=== PATIENT | male | born 1995 | race African-American/Black ===

== ENCOUNTER 2016-08-01 07:18 | Emergency (ER) | payer BC ==
[2016-08-01 07:38] VITALS: BP 134/71
[2016-08-01] MEDS ORDERED: cefTRIAXone VIAL(*) 1,000 MG VIAL IM ONE (07:59)
[2016-08-01] MEDS ORDERED: Acetaminophen ADULT LIQ* 650 MG/20.3 ML UDC PO ONE (08:00)
[2016-08-01] MEDS ORDERED: methylPREDNISolone 125 MG* 2 ML VIAL IM ONE (08:00)
[2016-08-01] MEDS ORDERED: Lidocaine 1% MPF* 2 ML VIAL ONE (08:06)
--- NOTE | 2016-08-01 11:35 | UC ---
Jose Srinivasan Adam, scribed for Nolvia Russo MD on 08/01/16 at 0736 . Throat Pain/Nasal Amado HPI - HPI Summary HPI Summary: Pt is a 21 year old male presenting with a sore throat and swollen glands. He states that he has not been feeling well for "a couple of days." He also reports a fever and a mild cough. He denies rash and rhinorrhea. He has not taken any Tylenol or ibuprofen. 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 C/o hurts to swallow, melinda R neck. C/o pain under R jaw. No rash. Mild nonprod cough. Mild headache. No GI issues Able to drink water, but hurts to swallow. - History of Current Complaint Stated Complaint: SORE THROAT NECK PAIN Hx Obtained From: Patient Onset/Duration: Gradual Onset, Lasting Days, Still Present Severity: Moderate Cough: Nonproductive Associated Signs & Symptoms: Positive: Fever. Negative: Nasal Discharge, Rash - Allergies/Home Medications Allergies/Adverse Reactions: Allergies Allergy/AdvReac Type Severity Reaction Status Date / Time No Known Allergies Allergy Verified 08/01/16 07:38 PMH/Surg Hx/FS Hx/Imm Hx Previously Healthy: Yes Endocrine History Of: Denies: Diabetes, Thyroid Disease Cardiovascular History Of: Denies: Cardiac Disorders, Hypertension Respiratory History Of: Denies: COPD, Asthma GI/ History Of: Denies: Ulcer - Surgical History Surgical History: None - Family History Known Family History: Negative: Hypertension, Diabetes - Social History Occupation: Student Lives: With Family - Mother Alcohol Use: Occasionally Substance Use Type: None Smoking Status (MU): Never Smoked Tobacco Review of Systems Constitutional: Fever Skin: Negative Eyes: Negative ENT: Sore Throat - see hpi Respiratory: Cough - see hpi Cardiovascular: Negative Gastrointestinal: Negative Genitourinary: Negative Motor: Negative Neurovascular: Negative Musculoskeletal: Negative Neurological: Negative Psychological: Negative All Other Systems Reviewed And Are Negative: Yes Physical Exam Triage Information Reviewed: Yes Vital Signs: Initial Vital Signs Temp 101.8 F 08/01/16 07:32 Pulse 115 08/01/16 07:32 Resp 16 08/01/16 07:32 BP 134/71 08/01/16 07:32 Pulse Ox 100 08/01/16 07:32 - Additional Comments Appearance: Well-Nourished * Eye Exam: Normal * ENT Exam: Tonsils swollen, right slightly more than left. Uvula is midline. Tongue not elevated. Speach clear. Lips a lttle dry. Cerumen impaction in both ears (patient declines to have them flushed). * Neck exam: Right submandibular lymphadenopathy with tenderness. C/o pain turning neck to the left 2/2 pain in R gland area. No zulema meningismus perse. * Respiratory Exam: Normal, lungs clear, no dyspnea, no tachypnea, normal respiratory rate * Cardiovascular Exam: Normal, no murmur * Cardiovascular: Heart rate regular, good general skin color, good capillary refill. No rash visible or reported. * Abdominal Exam: Normal * Abdomen Description: Nontender, No Organomegaly, Soft * Bowel Sounds: Present * Musculoskeletal Exam: Normal * Musculoskeletal: Strength Intact * Neurological Exam: Normal: nonfocal, grossly intact * Psychological Exam: Normal: conversing easily and appropriately * Skin Exam: Normal: no visible or reported rash Diagnostics - Laboratory Diagnostic Studies Completed/Ordered: Group A Strep Rapid - Negative Throat Pain/Nasal Course/Dx - Course Course Of Treatment: RST negative. Full culture sent. Tonsils red and swollen , no purulence. Slightly assymetric size of swelling, R>L. No purulence. No stridor. No trismus. Considered below diff dx's. C/w tonsillitis (non-strep) . Does have a hx of mononucleosis in the past (noted in lab results in [facility] ). Consider possible early peritonsillar abscess. D/w pt and mom. Rx - augmentin. Rocephin IM here, Solumedrol IM here, Acetaminophen po here. Will take ibuprofen later today at home. Called ENT office (Dr. Chiang), the office will kindly schedule Mr. Child for tomorrow recheck at 11:15. D/w pt and mom. They will f/u with pcp, per routine. Advised to seek more immediate attention for any worse or new problems. Questions answered as posed to the best of my ability. - Differential Dx/Diagnosis Provider Diagnoses: Tonsillitis, possible early peritonsillar abscess R Discharge - Discharge Plan Condition: Stable Disposition: HOME Patient Education Materials: Peritonsillar Abscess (ED), Tonsillitis (ED) Forms: *Work Release Referrals: Torrey Chiang MD [Medical Doctor] - Additional Instructions: Follow up with Dr. Chiang (ENT) at 11:15 tomorrow morning (08/02/16). Seek medical attention sooner for worse or new problems in the meantime. Follow up with your primary care physician, Dr. Horne, per routine. You may have an early peritonsillar abscess. Important to be checked by ENT doctor tomorrow. Strep test negative. Throat culture has been sent. The documentation as recorded by the Jose stein Adam accurately reflects the service I personally performed and the decisions made by me, Nolvia Russo MD.
== END 2016-08-01 08:40 | disposition home or self-care (01) ==
LOC: UCEAST 07:18
DX: J03.90 Acute tonsillitis, unspecified (principal)
CPT/HCPCS: 87070; 87651; 96372; 99212; A9270-GY; G0463; J0696; J2930

== ENCOUNTER 2016-10-16 11:33 | Emergency (ER) | payer BC ==
[2016-10-16 12:32] VITALS: BP 138/78
--- NOTE | 2016-10-16 13:48 | UC ---
Complaint Male HPI - HPI Summary HPI Summary: The patient comes in today for: 1. Dysuria: Onset: 2-3 days. Palliative/provocative: Urination makes it worse. Quality: Dysuria, burning. Region: Severity: 10 Time: Comes and goes depending on urination. Associated symptoms: Hematuria: None. Previous symptoms: February of 2016. He was seen at [facility] and diagnosed as having chlamydia. Even though the test came back negative, he states that he was treated only with two pills when he was there--2 pills at the same time-zithromycin. It all cleared up. Discharge: None. Discoloration of semen or urine: None. Sexually active: "recently" female, with no known problems. Urinary frequent: None. Urinary urgency: None. * - History of Current Complaint Chief Complaint: [facility] Stated Complaint: URINATION COMPLAINT Time Seen by Provider: 10/16/16 13:40 Hx Obtained From: Patient - Allergies/Home Medications Allergies/Adverse Reactions: Allergies Allergy/AdvReac Type Severity Reaction Status Date / Time No Known Allergies Allergy Verified 10/16/16 12:28 PMH/Surg Hx/FS Hx/Imm Hx Previously Healthy: Yes Endocrine History Of: Denies: Diabetes, Thyroid Disease, Hyperthyroidism, Hypothyroidism, Dyslipidemia Cardiovascular History Of: Denies: Cardiac Disorders, Hypertension, Pacemaker/ICD, Myocardial Infarction , Congestive Heart Failure, Atrial Fibrillation, Deep Vein Thrombosis, Bleeding Disorders Respiratory History Of: Denies: COPD, Asthma, Bronchitis, Pneumonia, Pulmonary Embolism GI/ History Of: Denies: Gastroesophageal Reflux, Ulcer, Gastrointestinal Bleed, Gall Bladder Disease, Kidney Stones, Diverticulitis, Renal Disease, Urosepsis Neurological History Of: Denies: TIA, CVA, Dementia, Seizures, Migraine Psychological History Of: Denies: Anxiety, Depression, Bipolar Disorder, Schizophrenia, Post Traumatic Stress Disorder Cancer History Of: Denies: Lung Cancer, Colorectal Cancer, Breast Cancer, Prostate Cancer, Cervical Cancer Other History Of: Negative For: HIV, Hepatitis B, Hepatitis C, Anticoagulant Therapy - Surgical History Surgical History: None - Family History Known Family History: Negative: Hypertension, Diabetes - Social History Occupation: Employed Full-time Alcohol Use: Occasionally Substance Use Type: None Smoking Status (MU): Never Smoked Tobacco Review of Systems Constitutional: Negative Skin: Negative Eyes: Negative ENT: Negative Respiratory: Negative Cardiovascular: Negative Gastrointestinal: Negative Genitourinary: Dysuria All Other Systems Reviewed And Are Negative: Yes Physical Exam Triage Information Reviewed: Yes Appearance: Well-Appearing, No Pain Distress, Well-Nourished Vital Signs: Initial Vital Signs Temp 98.3 F 10/16/16 12:28 Pulse 72 10/16/16 12:28 Resp 16 10/16/16 12:28 BP 138/78 10/16/16 12:28 Pulse Ox 100 10/16/16 12:28 Vital Signs Reviewed: Yes Eyes: Positive: Conjunctiva Clear. Negative: Discharge ENT: Positive: Hearing grossly normal, Other: - Bilateral ears: cerumen in place --no canal erythema. Negative: Pharyngeal erythema, Nasal congestion, Nasal drainage Dental: Negative: Gross Decay/Caries @, Dental Fracture @ Neck: Positive: Supple, Nontender, No Lymphadenopathy. Negative: Nuchal Rigidity Respiratory: Positive: Lungs clear, No respiratory distress, No accessory muscle use. Negative: Rhonchi, Wheezing Cardiovascular: Positive: RRR, No Murmur Abdomen Description: Positive: Nontender, No Organomegaly, Soft. Negative: Distended, Guarding Musculoskeletal: Positive: Strength Intact, ROM Intact, No Edema Neurological: Positive: Alert, Muscle Tone Normal Psychological: Positive: Age Appropriate Behavior, Consolable Skin: Negative: rashes, breakdown UC Physical Exam Vital Signs On Initial Exam: Initial Vitals Temp Pulse Resp BP Pulse Ox 98.3 F 72 16 138/78 100 10/16/16 12:28 10/16/16 12:28 10/16/16 12:28 10/16/16 12:28 10/16/16 12:28 - Genitalia Exam Male Genitalia: Circumcised, Other - Inguinal nodes: No lymphadenopathy Penis: circ'ed male. No penile lesions or masses or tenderness or ulcers. There was no urethral discharge even with milking of penis. Testes: Non-tender. Testes are soft and round--no masses-- with no swelling or masses. Diagnostics - Laboratory Diagnostic Studies Completed/Ordered: Urine screen: Specific gravity: 1.025. WBC: (-). Nitrite: (-). Blood: (-). Protein: Trace. Glucose: (-) Complaint Male Course/Dx - Course Course Of Treatment: Patient was told of his diagnostic and treatment options. At this time, he only wants to go with 1000 mg of zithromax. - Differential Dx/Diagnosis Differential Diagnosis/HQI/PQRI: Epididymitis, Prostatitis Provider Diagnoses: Dysuria Discharge - Discharge Plan Condition: Stable Disposition: HOME Patient Education Materials: Dysuria (ED), Safe Sex (ED) Referrals: Alan Horne MD [Primary Care Provider] - 1 Week (Please see your primary care provider in a week to see how well you are doing. If you get worse, please be seen sooner in the ER or through us.)
[2016-10-16] MEDS ORDERED: Azithromycin TAB* 250 MG PO ONE (13:59)
== END 2016-10-16 14:20 | disposition home or self-care (01) ==
LOC: UCEAST 11:33
DX: R30.0 Dysuria (principal)
CPT/HCPCS: 81003; 87491; 87591; 99212; A9270-GY; G0463

== ENCOUNTER 2016-10-17 10:02 | Emergency (ER) | payer BC, OTHER ==
[2016-10-17 10:47] VITALS: BP 132/74
[2016-10-17] MEDS ORDERED: Ibuprofen TAB* 600 MG PO ONE (11:24)
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
== END 2016-10-17 12:32 | disposition home or self-care (01) ==
LOC: UCEAST 10:02
DX: S70.02XA Contusion of left hip, initial encounter (principal); V47.5XXA Car driver injured in collision with fixed or stationary object in traffic accident, initial encounter; Y92.410 Unspecified street and highway as the place of occurrence of the external cause
CPT/HCPCS: 72170; 81003; 99212; A9270-GY; G0463

== ENCOUNTER 2017-08-01 19:12 | Emergency (ER) | payer BC, OTHER ==
[2017-08-01 19:37] VITALS: BP 119/64
[2017-08-01] MEDS ORDERED: Ketorolac INJ* 60 MG/2 ML VIAL IM ONE (20:11)
[2017-08-01] MEDS ORDERED: Ondansetron INJ* 2 MG/ML VIAL IM ONE (20:12)
--- NOTE | 2017-08-01 20:25 | UC ---
UC General HPI - HPI Summary HPI Summary: 22 yo BM c/o f/c/bodyches associated with diarrhea x 2 since this AM. Denies URI sx of cough, congestion - History of Current Complaint Chief Complaint: UCGeneralIllness Stated Complaint: VOMITING Time Seen by Provider: 08/01/17 19:47 Hx Obtained From: Patient, Family/Medical Secretary Teacher Onset/Duration: Sudden Onset, Lasting Hours Onset Severity: Moderate Current Severity: Moderate Pain Intensity: 9 - Allergy/Home Medications Allergies/Adverse Reactions: Allergies Allergy/AdvReac Type Severity Reaction Status Date / Time No Known Allergies Allergy Verified 08/01/17 19:37 PMH/Surg Hx/FS Hx/Imm Hx - Additional Past Medical History Additional PMH: none Other History Of: Negative For: HIV, Hepatitis B, Hepatitis C, Anticoagulant Therapy - Surgical History Surgical History: None - Family History Known Family History: Negative: Hypertension, Diabetes - Social History Alcohol Use: Occasionally Substance Use Type: None Smoking Status (MU): Never Smoked Tobacco Review of Systems Constitutional: Fever, Chills, Fatigue Skin: Negative Eyes: Negative ENT: Negative Respiratory: Negative Cardiovascular: Negative Gastrointestinal: Vomiting, Diarrhea, Nausea Genitourinary: Negative Motor: Negative Neurovascular: Negative Musculoskeletal: Myalgia Neurological: Negative Psychological: Negative All Other Systems Reviewed And Are Negative: Yes Physical Exam Triage Information Reviewed: Yes Appearance: Ill-Appearing Vital Signs: Initial Vital Signs Temp 36.1 C 08/01/17 19:33 Pulse 95 08/01/17 19:33 Resp 19 08/01/17 19:33 BP 119/64 08/01/17 19:33 Pulse Ox 100 08/01/17 19:33 Vital Signs Reviewed: Yes Eye Exam: Normal ENT Exam: Normal ENT: Positive: Pharynx normal, TMs normal Dental Exam: Normal Neck exam: Normal Neck: Positive: 1 Respiratory Exam: Normal Respiratory: Positive: Lungs clear Cardiovascular Exam: Normal Abdomen Description: Positive: Nontender, Soft Musculoskeletal: Positive: Other: - diffuse muscle tenderness Neurological Exam: Normal Psychological Exam: Normal Skin Exam: Normal Course/Dx - Course Course Of Treatment: Rapid strep and flu neg. Likely a virally mediated gastroenteritis. Zofran and supportive tx - Differential Dx - Multi-Symptom Provider Diagnoses: viral syndrome Discharge - Discharge Plan Condition: Stable Disposition: HOME Prescriptions: Ondansetron TAB* [Zofran 4 MG Tab*] 4 mg PO Q6H PRN 4 Days #16 tab PRN Reason: Nausea Patient Education Materials: Gastroenteritis (ED), Viral Syndrome (ED) Referrals: Alan Horne MD [Primary Care Provider] - Additional Instructions: please drink plenty of Fluids, soups, No soda
== END 2017-08-01 21:00 | disposition home or self-care (01) ==
LOC: UCEAST 19:12
DX: B34.9 Viral infection, unspecified (principal)
CPT/HCPCS: 87502; 87651; 99212; G0463; J1885; J2405

== ENCOUNTER 2018-05-11 22:57 | Emergency (ER) | payer BC ==
[2018-05-11] MEDS ORDERED: NS 0.9% 1000 ML* 1,000 ML IV ONE (23:16)
[2018-05-11] MEDS ORDERED: Ondansetron INJ* 2 MG/ML VIAL IV ONE (23:16)
[2018-05-11] MEDS ORDERED: Ketorolac INJ* 30 MG/ML 1 ML VIAL IV PUSH ONE (23:24)
[2018-05-11 23:48] LABS: ABS Basophils 0 10^3/ul (0-0.2); ABS Eosinophils 0.1 10^3/ul (0-0.6); ABS Lymphocytes 1.4 10^3/ul (1.0-4.8); ABS Monocytes 1.2 10^3/ul (0-0.8); ABS Neutrophils 11.1 10^3/ul (1.5-7.7); ABS Nucleated RBC 0.1 10^3/ul; Eosinophil % 1.1 %; Hematocrit 44 % (42-52); Hemoglobin 14.4 g/dl (14.0-18.0); Mean Corpuscular HGB Conc 33 g/dl (31-36); Mean Corpuscular Hemoglobin 25 pg (27-31); Mean Corpuscular Volume 75 fL (80-94); Mean Platelet Volume 8.5 fL (7.4-10.4); Nucleated Red Blood Cells % 0.7; Platelet Count 221 10^3/ul (150-450); Red Blood Count 5.86 10^6/ul (4.00-5.40); Red Cell Distribution Width 15 % (10.5-15); White Blood Count 13.8 10^3/ul (3.5-10.8)
[2018-05-12 00:04] LABS: ALT 30 U/L (7-52); AST 68 U/L (13-39); Albumin 4.3 g/dL (3.2-5.2); Albumin/Globulin Ratio 1.4 (1-3); Alkaline Phosphatase 75 U/L (34-104); Anion Gap 7 mmol/L (2-11); BUN/Creatinine Ratio 17.6 (8-20); Blood Urea Nitrogen 18 mg/dL (6-24); C Reactive Protein < 1.00 mg/L (<8.01); CO2 Carbon Dioxide 29 mmol/L (22-32); Calcium 9.2 mg/dL (8.6-10.3); Chloride 102 mmol/L (101-111); EGFR Non-African American 90.5 (>60); Globulin 3.1 g/dL (2-4); Glucose 105 mg/dL (70-100); Potassium 3.7 mmol/L (3.5-5.0); Sodium 138 mmol/L (135-145); Total Protein 7.4 g/dL (6.4-8.9)
--- NOTE | 2018-05-12 00:12 | ED ---
GI/ HPI - HPI Summary HPI Summary: 23-year-old male presents with nausea vomiting abdominal pain today. Girlfriend has similar symptoms. Did not eat anything different. No fevers. No diarrhea but feels that he started to have some. No cough. No urinary symptoms. Pain is mild and is generalized. Does not radiate to the back. No sore throat. Denies any other symptoms. started after dinner. has not been able to keep anything down. - History of Current Complaint Chief Complaint: EDNauseaVomitDiarrh Time Seen by Provider: 05/11/18 23:16 Stated Complaint: NAUSEA, BODY ACHES Pain Intensity: 6 - Allergy/Home Medications Allergies/Adverse Reactions: Allergies Allergy/AdvReac Type Severity Reaction Status Date / Time No Known Allergies Allergy Verified 05/11/18 23:03 PMH/Surg Hx/FS Hx/Imm Hx Endocrine/Hematology History: Denies: Hx Anticoagulant Therapy, Hx Diabetes, Hx Thyroid Disease Cardiovascular History: Denies: Hx Congestive Heart Failure, Hx Deep Vein Thrombosis, Hx Hypertension , Hx Myocardial Infarction, Hx Pacemaker/ICD Respiratory History: Denies: Hx Asthma, Hx Chronic Obstructive Pulmonary Disease (COPD), Hx Lung Cancer, Hx Pneumonia, Hx Pulmonary Embolism GI History: Denies: Hx Gall Bladder Disease, Hx Gastrointestinal Bleed, Hx Ulcer, Hx Urosepsis History: Denies: Hx Kidney Stones, Hx Renal Disease Neurological History: Denies: Hx Dementia, Hx Migraine, Hx Seizures, Hx Transient Ischemic Attacks (TIA) Psychiatric History: Denies: Hx Anxiety, Hx Depression, Hx Schizophrenia, Hx Bipolar Disorder Infectious Disease History: No Infectious Disease History: Denies: Hx Hepatitis, Hx Human Immunodeficiency Virus (HIV), History Other Infectious Disease, Traveled Outside the [place] in Last 30 Days - Family History Known Family History: Negative: Hypertension, Diabetes - Social History Alcohol Use: Occasionally Substance Use Type: Reports: None Smoking Status (MU): Never Smoked Tobacco Review of Systems Negative: Fever Negative: Chest Pain Negative: Shortness Of Breath Positive: Abdominal Pain, Vomiting, Nausea. Negative: Diarrhea All Other Systems Reviewed And Are Negative: Yes Physical Exam Triage Information Reviewed: Yes Vital Signs On Initial Exam: Initial Vitals Temp Pulse Resp BP Pulse Ox 100.5 F 87 16 150/92 100 05/11/18 23:00 05/11/18 23:00 05/11/18 23:00 05/11/18 23:00 05/11/18 23:00 Vital Signs Reviewed: Yes Appearance: Positive: Well-Appearing Skin: Positive: Warm, Dry Head/Face: Positive: Normal Head/Face Inspection Eyes: Positive: Normal, EOMI, KAMALA, Conjunctiva Clear ENT: Positive: Normal ENT inspection, Pharynx normal, TMs normal Respiratory/Lung Sounds: Positive: Clear to Auscultation, Breath Sounds Present Cardiovascular: Positive: Normal, RRR Abdomen Description: Positive: Soft, Other: - mild diffuse abdominal pain Bowel Sounds: Positive: Present Musculoskeletal: Positive: Normal Neurological: Positive: Normal Psychiatric: Positive: Normal Diagnostics - Vital Signs Vital Signs Temp Pulse Resp BP Pulse Ox 05/11/18 23:00 100.5 F 87 16 150/92 100 - Laboratory Lab Results: Lab Results 05/11/18 05/11/18 Range/Units 23:37 23:37 WBC 13.8 H (3.5-10.8) 10^3/ul RBC 5.86 H (4.00-5.40) 10^6/ul Hgb 14.4 (14.0-18.0) g/dl Hct 44 (42-52) % MCV 75 L (80-94) fL MCH 25 L (27-31) pg MCHC 33 (31-36) g/dl RDW 15 (10.5-15) % Plt Count 221 (150-450) 10^3/ul MPV 8.5 (7.4-10.4) fL Neut % (Auto) 80.1 % Lymph % (Auto) 10.0 % Thomas % (Auto) 8.6 % Eos % (Auto) 1.1 % Baso % (Auto) 0.2 % Absolute Neuts (auto) 11.1 H (1.5-7.7) 10^3/ul Absolute Lymphs (auto) 1.4 (1.0-4.8) 10^3/ul Absolute Monos (auto) 1.2 H (0-0.8) 10^3/ul Absolute Eos (auto) 0.1 (0-0.6) 10^3/ul Absolute Basos (auto) 0 (0-0.2) 10^3/ul Absolute Nucleated RBC 0.1 10^3/ul Nucleated RBC % 0.7 Sodium 138 (135-145) mmol/L Potassium 3.7 (3.5-5.0) mmol/L Chloride 102 (101-111) mmol/L Carbon Dioxide 29 (22-32) mmol/L Anion Gap 7 (2-11) mmol/L BUN 18 (6-24) mg/dL Creatinine 1.02 (0.67-1.17) mg/dL Est GFR ( Amer) 109.5 (>60) Est GFR (Non-Af Amer) 90.5 (>60) BUN/Creatinine Ratio 17.6 (8-20) Glucose 105 H (70-100) mg/dL Calcium 9.2 (8.6-10.3) mg/dL Total Bilirubin 1.80 H (0.2-1.0) mg/dL AST 68 H (13-39) U/L ALT 30 (7-52) U/L Alkaline Phosphatase 75 (34-104) U/L C-Reactive Protein < 1.00 (<8.01) mg/L Total Protein 7.4 (6.4-8.9) g/dL Albumin 4.3 (3.2-5.2) g/dL Globulin 3.1 (2-4) g/dL Albumin/Globulin Ratio 1.4 (1-3) Lipase 42 (11.0-82.0) U/L Result Diagrams: 05/11/18 23:37 05/11/18 23:37 Lab Statement: Any lab studies that have been ordered have been reviewed, and results considered in the medical decision making process. Re-Evaluation - Re-Evaluation First Eval Re-Evaluation Time: 00:15 Change: Improved Comment: no longer nausous GIGU Course/Dx - Course Course Of Treatment: 23-year-old male presents with nausea vomiting abdominal pain today. Girlfriend has similar symptoms. Did not eat anything different. No fevers. No diarrhea but feels that he started to have some. No cough. No urinary symptoms. Pain is mild and is generalized. Does not radiate to the back. No sore throat. Denies any other symptoms. On exam mild diffuse abdominal pain. White blood cell elevated and crp normal. Gave Toradol and Zofran and fluids and feeling better. Flu is negative. urine shows ketones. will discharge with zofran. patient understand and agrees with plan. - Diagnoses Differential Diagnoses - Male: Esophagitis/Gastritis, Esophageal Varices, Urinary Tract Infection Provider Diagnoses: Vomiting, Abdominal pain Discharge - Sign-Out/Discharge Documenting (check all that apply): Patient Departure - Discharge Plan Condition: Good Disposition: HOME Prescriptions: Ondansetron ODT TAB* [Zofran 4 MG Odt TAB*] 4 mg PO Q6H PRN #12 tab.odt PRN Reason: Nausea Patient Education Materials: Acute Nausea and Vomiting (ED) Referrals: Alan Horne MD [Primary Care Provider] - Additional Instructions: Can take Zofran every 6 hours as needed for nausea Drink small amounts of fluid as tolerated When able to eat follow BRAT diet: Bananas, rice, applesauce, toast Take ibuprofen or Tylenol for pain as needed every 6 hours Follow up with primary within 5 days Return to ED if develop any new or worsening symptoms - Billing Disposition and Condition Condition: GOOD Disposition: Home
[2018-05-12] MEDS ORDERED: O ndansetron ODT 4MG 5TAB PRPK 4 MG PAK PO ONE (00:42)
[2018-05-12 00:50] LABS: Urine Appearance Cloudy; Urine Bilirubin Negative (Negative); Urine Blood Negative (Negative); Urine Color Yellow; Urine Glucose Negative (Negative); Urine Ketones Trace (Negative); Urine Nitrite Negative (Negative); Urine Protein Negative (Negative); Urine Specific Gravity 1.018 (1.010-1.030); Urine Urobilinogen Negative (Negative)
[2018-05-12 01:02] VITALS: BP 133/80
== END 2018-05-12 01:01 | disposition home or self-care (01) ==
LOC: ED 22:57
DX: R11.2 Nausea with vomiting, unspecified (principal); R10.9 Unspecified abdominal pain
CPT/HCPCS: 36415; 80053; 81003; 83690; 85025; 86140; 96361; 96374; 96375; 99283; A9270-GY; J1885; J2405

== ENCOUNTER 2018-07-11 17:47 | Emergency (ER) | payer BC ==
[2018-07-11 18:03] VITALS: BP 117/77
--- NOTE | 2018-07-11 18:12 | UC ---
FLU HPI - HPI Summary HPI Summary: 23 yo male presents with body aches, fatigue, and b/l earache for the last 2 days. He tells me that his girlfriend and his child were recently dx'd with the flu and he thinks he may have it. Has not been taking anything OTC for his symptoms. Has felt hot/cold, but has not taken his temperature. Denies cough, SOB, chest pain, abdominal pain, n/v. - History of Current Complaint Chief Complaint: UCRespiratory Stated Complaint: SINUS CONGESTION, EAR ACHE ,AND SORE THROAT Time Seen by Provider: 07/11/18 18:12 Hx Obtained From: Patient Onset/Duration: Sudden Onset Severity Currently: Moderate Severity Initially: Moderate Pain Intensity: 8 Pain Scale Used: 0-10 Numeric - Allergy/Home Medications Allergies/Adverse Reactions: Allergies Allergy/AdvReac Type Severity Reaction Status Date / Time No Known Allergies Allergy Verified 05/11/18 23:03 PMH/Surg Hx/FS Hx/Imm Hx - Additional Past Medical History Additional PMH: None Other History Of: Negative For: HIV, Hepatitis B, Hepatitis C, Anticoagulant Therapy - Surgical History Surgical History: None - Family History Known Family History: Negative: Hypertension, Diabetes - Social History Lives: With Family Alcohol Use: None Substance Use Type: None Smoking Status (MU): Never Smoked Tobacco Review of Systems All Other Systems Reviewed And Are Negative: Yes Constitutional: Positive: Chills, Fatigue, Other - Body aches Skin: Positive: Negative Eyes: Positive: Negative ENT: Positive: Sore Throat, Ear Ache, Sinus Congestion Respiratory: Positive: Negative Cardiovascular: Positive: Negative Gastrointestinal: Positive: Negative Neurovascular: Positive: Negative Neurological: Positive: Negative Psychological: Positive: Negative Physical Exam - Summary Physical Exam Summary: GENERAL: NAD. WDWN. No pain distress. SKIN: No rashes, sores, lesions, or open wounds. HEENT: Head: AT/NC Eyes: EOM intact. Conjunctiva clear without inflammation or discharge. Ears: Hearing grossly normal. B/L TM occluded by cerumen. S/P disimpaction: TMs intact, no bulging, erythema, or edema. Nose: Nasal mucosa pink and moist. NTTP maxillary and frontal sinus. Throat: Posterior oropharynx without exudates, erythema, or tonsillar enlargement. Uvula midline. NECK: Supple. Nontender. No lymphadenopathy. CHEST: CTAB. No r/r/w. No accessory muscle use. Breathing comfortably and in no distress. CV: RRR. Without m/r/g. Pulses intact. Cap refill <2seconds NEURO: Alert. PSYCH: Age appropriate behavior. Triage Information Reviewed: Yes Vital Signs: Initial Vital Signs Temp 99.5 F 07/11/18 18:01 Pulse 78 07/11/18 18:01 Resp 18 07/11/18 18:01 BP 117/77 07/11/18 18:01 Pulse Ox 96 07/11/18 18:01 Laboratory Tests 07/11/18 18:08 Influenza A (Rapid) Negative Influenza B (Rapid) Negative Vital Signs Reviewed: Yes Flu Course/Dx - Course Course Of Treatment: POC flu negative, but given his symptoms and recent exposure will treat with tamiflu. Cerumen disimpaction provided relief of earache. - Differential Dx/Diagnosis Provider Diagnosis: Cerumen impaction, Influenza Discharge - Sign-Out/Discharge Documenting (check all that apply): Patient Departure All imaging exams completed and their final reports reviewed: No Studies - Discharge Plan Condition: Stable Disposition: HOME Prescriptions: Oseltamivir CAP* [Tamiflu CAP*] 75 mg PO BID #10 cap Patient Education Materials: Cerumen Impaction (ED), Influenza (DC) Forms: *Work Release Referrals: Alan Horne MD [Primary Care Provider] - Additional Instructions: If you develop a fever, shortness of breath, chest pain, new or worsening symptoms - please call your PCP or go to the ED. Rest and drink plenty of fluids May take tylenol/ibuprofen as directed for fever or discomfort - Billing Disposition and Condition Condition: STABLE Disposition: Home - Attestation Statements Provider Attestation: I was available for consult. This patient was seen by the THIEN. The patient was not presented to, seen by, or examined by me. -Molly
[2018-07-11 18:20] LABS: Influenza A Molecular NEGATIVE (Negative); Influenza B Molecular NEGATIVE (Negative)
== END 2018-07-11 18:56 | disposition home or self-care (01) ==
LOC: UCEAST 17:47
DX: J11.1 Influenza due to unidentified influenza virus with other respiratory manifestations (principal); H61.23 Impacted cerumen, bilateral
CPT/HCPCS: 99213; G0463

== ENCOUNTER 2018-10-07 07:21 | Emergency (ER) | payer BC ==
[2018-10-07] MEDS ORDERED: Ibuprofen ADULT LIQ* 600 MG/30 ML UDC PO ONE (07:46)
[2018-10-07 07:49] VITALS: BP 142/83
--- NOTE | 2018-10-07 07:54 | UC ---
Throat Pain/Nasal Amado HPI - HPI Summary HPI Summary: 23-year-old male comes in with a chief complaint of bilateral facial pain and inability to open his mouth. Pain started overnight it's the angle of the mandible and up into the TM take joint and just underneath the mandible. No fevers or chills. He is able to swallow. He has been able to drink water but has not been able to eat solid foods. No shortness of breath. Has not taken any medications. - History of Current Complaint Chief Complaint: UCRespiratory Stated Complaint: CAN NOT OPEN MOUTH Time Seen by Provider: 10/07/18 07:35 Pain Intensity: 9 - Allergies/Home Medications Allergies/Adverse Reactions: Allergies Allergy/AdvReac Type Severity Reaction Status Date / Time kiwi Allergy Swelling Verified 10/07/18 07:49 Home Medications: Home Medications NK [No Home Medications Reported] 10/07/18 [History Confirmed 10/07/18] PMH/Surg Hx/FS Hx/Imm Hx Previously Healthy: Yes Other History Of: Negative For: HIV, Hepatitis B, Hepatitis C, Anticoagulant Therapy - Surgical History Surgical History: None - Family History Known Family History: Negative: Hypertension, Diabetes - Social History Alcohol Use: Occasionally Substance Use Type: None Smoking Status (MU): Never Smoked Tobacco Review of Systems All Other Systems Reviewed And Are Negative: Yes Constitutional: Positive: Negative Skin: Positive: Negative Eyes: Positive: Negative ENT: Positive: Nasal Discharge, Sinus Congestion, Other - see hpi Respiratory: Positive: Negative Cardiovascular: Positive: Negative Gastrointestinal: Positive: Negative Motor: Positive: Negative Neurovascular: Positive: Negative Musculoskeletal: Positive: Negative Neurological: Positive: Negative Psychological: Positive: Negative Is Patient Immunocompromised?: No Physical Exam Triage Information Reviewed: Yes Appearance: Well-Appearing, Well-Nourished, Pain Distress - mild with attempt to open jaw Vital Signs: Initial Vital Signs Temp 99.3 F 10/07/18 07:39 Pulse 82 10/07/18 07:39 Resp 16 10/07/18 07:39 BP 142/83 10/07/18 07:39 Pulse Ox 97 10/07/18 07:39 Vital Signs Reviewed: Yes Eye Exam: Normal Eyes: Positive: Conjunctiva Clear ENT: Positive: TMs normal, Other - Unable to visualize the posterior pharynx. Opens mouth to 1.5cm. Tender to palpation at b/l TMJs and parotid and sub mandibular areas. No parotid or sub mandibular swelling. Neck: Positive: Supple, Enlarged Nodes @ - uner the angles of both sides of the jaw. Negative: Nuchal Rigidity Respiratory: Positive: Lungs clear, Normal breath sounds, No respiratory distress. Negative: Respiratory distress, Stridor Cardiovascular: Positive: RRR Musculoskeletal Exam: Normal Musculoskeletal: Positive: Strength Intact, ROM Intact Neurological Exam: Normal Neurological: Positive: Alert, Muscle Tone Normal Psychological Exam: Normal Psychological: Positive: Age Appropriate Behavior Skin Exam: Normal Throat Pain/Nasal Course/Dx - Course Course Of Treatment: In clinic the patient was given ibuprofen 600 mg by mouth. Patient can't say whether or not that helped or not. He is able to talk. I'm not picking up any unilateral swelling. He is tender over the masseters. Is also tender at the TMJ and just underneath the angle of the jaw bilaterally. Temperature is 99.3 here in clinic. The rest of his neck is supple. Rapid strep was negative. There has been no airway compromise during the course of his illness. It is unclear whether the cause of the trismus is infectious or more muscular skeletal spasm inflammation. I called over to ENT and they asked if the patient could come directly to their office for further evaluation. The patient agreed and his mother's can drive him. At this time there is no airway compromise. - Differential Dx/Diagnosis Provider Diagnosis: Trismus Discharge - Sign-Out/Discharge Documenting (check all that apply): Patient Departure All imaging exams completed and their final reports reviewed: No Studies - Discharge Plan Condition: Stable Disposition: HOME Referrals: Alan Horne MD [Primary Care Provider] - Samuel Chaudhry MD [Medical Doctor] - Additional Instructions: FOLLOW UP WITH ENT NOW FOR YOUR TRISMUS. GET RECHECKED IF YOUR CONDITION WORSENS; DIFFICULTY SWALLOWING OR BREATHING OR ANY QUESTIONS OR CONCERNS. - Billing Disposition and Condition Condition: STABLE Disposition: Home
== END 2018-10-07 08:40 | disposition home or self-care (01) ==
LOC: UCEAST 07:21
DX: R25.2 Cramp and spasm (principal); R09.81 Nasal congestion; Z91.018 Allergy to other foods
CPT/HCPCS: 87651; 99212; A9270-GY; G0463

== ENCOUNTER 2018-12-15 13:32 | Emergency (ER) | payer BC ==
[2018-12-15 13:53] VITALS: BP 140/92
--- NOTE | 2018-12-15 13:53 | UC ---
UC General HPI - HPI Summary HPI Summary: 5 days ago pain L flank, progressively worse. Last BM today, diarrhea. However , reports he was obstipated for several days prior. No known melena / brbpr. + decreased urination, thinks may be from dehydration but not sure. + hx renal stones. + family hx renal stones. No dark urine nor other urine issues other than above. No rash. Does have a hx of recurrent tonsillitis, has seen ENT in the past, most recently apprx 3 weeks ago. Was treated at that time with an antibiotic (augmentin? he is not sure...) but did not complete the abx course. Stopped abx when felt better. Thinks had a positive strep test at the time. Throat and jaw started hurting again the same day as flank pain started. Not sure if related or not. Works standing up for the most part, but today pain was too intense and left to come to [facility]. - History of Current Complaint Chief Complaint: UCBackPain Stated Complaint: SHARP PAIN LEFT SIDE/BACK Time Seen by Provider: 12/15/18 13:44 Hx Obtained From: Patient Pain Intensity: 7 - Allergy/Home Medications Allergies/Adverse Reactions: Allergies Allergy/AdvReac Type Severity Reaction Status Date / Time kiwi Allergy Swelling Verified 12/15/18 13:52 Home Medications: Home Medications Ibuprofen 400 mg PO 12/15/18 [History] PMH/Surg Hx/FS Hx/Imm Hx Previously Healthy: Yes Other History Of: Negative For: HIV, Hepatitis B, Hepatitis C, Anticoagulant Therapy - Surgical History Surgical History: None - Family History Known Family History: Positive: Other - see hpi Negative: Hypertension, Diabetes - Social History Alcohol Use: Occasionally Substance Use Type: None Smoking Status (MU): Never Smoked Tobacco Review of Systems All Other Systems Reviewed And Are Negative: Yes Constitutional: Positive: Other - see hpi Skin: Positive: Negative Eyes: Positive: Negative ENT: Positive: Negative Respiratory: Positive: Negative Cardiovascular: Positive: Negative Gastrointestinal: Positive: Negative Genitourinary: Positive: Negative Motor: Positive: Other Neurovascular: Positive: Other Musculoskeletal: Positive: Other: Neurological: Positive: Negative Psychological: Positive: Negative Is Patient Immunocompromised?: No Physical Exam Triage Information Reviewed: Yes Appearance: Well-Nourished - able to ambulate, but looks uncomfortable. NAD. Nontoxic general appearance. Vital Signs: Initial Vital Signs Temp 99.3 F 12/15/18 13:44 Pulse 74 12/15/18 13:44 Resp 18 12/15/18 13:44 BP 140/92 12/15/18 13:44 Pulse Ox 99 12/15/18 13:44 Eye Exam: Normal ENT Exam: Other ENT: Positive: Other - Tonsils red, mild swelling + white spots both tonsils. Uvula midline. No stridor. Hurts to open mouth all the way. Neck exam: Normal - no adenopathy appreciated, but + tender glands Neck: Positive: Supple, Nontender Respiratory Exam: Normal Respiratory: Positive: Chest non-tender, Lungs clear, Normal breath sounds, No respiratory distress, No accessory muscle use Cardiovascular Exam: Normal Cardiovascular: Positive: RRR, No Murmur, Pulses Normal, Brisk Capillary Refill Abdominal Exam: Other - + tender L post flank. No point bony tenderness. No abd hsm appreciated. + nabs. ND. No rebound Musculoskeletal Exam: Normal - moves x 4 ext's, gait steady Neurological Exam: Normal - grossly nonfocal. Detailed not done. Psychological Exam: Normal - conversing easily and appropriately Skin Exam: Normal - no visible or reported rash Course/Dx - Course Course Of Treatment: Blood glucose 94mg / dl unable to give urine sample. RST - negative. Reviewed with pt and business asst recommendation for evaluation and treatment. EMS declined. Girlfiend will drive. Questions as posed answered to the best of my ability. - Diagnoses Provider Diagnosis: Acute flank pain, Tonsillitis Discharge - Sign-Out/Discharge Documenting (check all that apply): Patient Departure All imaging exams completed and their final reports reviewed: No Studies - Discharge Plan Condition: Guarded Disposition: HOME-RECOMMEND TO ED Patient Education Materials: Tonsillitis (ED), Flank Pain (ED) Referrals: Alan Horne MD [Primary Care Provider] - Additional Instructions: Please go to the Emergency Department. Please do not eat prior to arriving to the ED. - Billing Disposition and Condition Condition: GUARDED Disposition: Home-Recommend to ED
== END 2018-12-15 14:39 | disposition home health service (06) ==
LOC: UCEAST 13:32
DX: R10.9 Unspecified abdominal pain (principal); J03.90 Acute tonsillitis, unspecified
CPT/HCPCS: 87651; 99212; G0463

== ENCOUNTER 2018-12-15 15:00 | Emergency (ER) | payer BC ==
--- NOTE | 2018-12-15 15:26 | ED ---
GI/ HPI - HPI Summary HPI Summary: This patient is a 23 year old male presenting to [facility] with a chief complaint of left-sided intermittent flank pain since 4 days ago. The patient has a Hx of kidney stones and states this feels similar. He also reports dysuria. He rates his pain 6/10 in severity. He denies any testicular pain. - History of Current Complaint Chief Complaint: EDFlankPain Time Seen by Provider: 12/15/18 15:18 Stated Complaint: PAINS IN MY SIDE, SENT FROM [facility] PER PT Hx Obtained From: Patient Onset/Duration: Started Days Ago Timing: Intermittent Pain Intensity: 6 Location of Pain: Flank - Allergy/Home Medications Allergies/Adverse Reactions: Allergies Allergy/AdvReac Type Severity Reaction Status Date / Time kiwi Allergy Swelling Verified 12/15/18 13:52 PMH/Surg Hx/FS Hx/Imm Hx Endocrine/Hematology History: Denies: Hx Anticoagulant Therapy, Hx Diabetes, Hx Thyroid Disease Cardiovascular History: Denies: Hx Congestive Heart Failure, Hx Deep Vein Thrombosis, Hx Hypertension , Hx Myocardial Infarction, Hx Pacemaker/ICD Respiratory History: Denies: Hx Asthma, Hx Chronic Obstructive Pulmonary Disease (COPD), Hx Lung Cancer, Hx Pneumonia, Hx Pulmonary Embolism GI History: Denies: Hx Gall Bladder Disease, Hx Gastrointestinal Bleed, Hx Ulcer, Hx Urosepsis History: Denies: Hx Kidney Stones, Hx Renal Disease Neurological History: Denies: Hx Dementia, Hx Migraine, Hx Seizures, Hx Transient Ischemic Attacks (TIA) Psychiatric History: Denies: Hx Anxiety, Hx Depression, Hx Schizophrenia, Hx Bipolar Disorder Infectious Disease History: No Infectious Disease History: Denies: Hx Hepatitis, Hx Human Immunodeficiency Virus (HIV), History Other Infectious Disease, Traveled Outside the [place] in Last 30 Days - Family History Known Family History: Positive: Other - see hpi Negative: Hypertension, Diabetes - Social History Alcohol Use: Occasionally Substance Use Type: Reports: None Smoking Status (MU): Never Smoked Tobacco Review of Systems Negative: Fever Positive: dysuria, flank pain, other - Denies testicular pain All Other Systems Reviewed And Are Negative: Yes Physical Exam - Summary Physical Exam Summary: Appearance: Well appearing, no pain distress Skin: warm, dry, reflects adequate perfusion Head/face: normal Eyes: EOMI, KAMALA ENT: normal Neck: supple, non-tender Respiratory: CTA, breath sounds present Cardiovascular: RRR, pulses symmetrical Abdomen: non-tender, soft. Tenderness in the left flank. Musculoskeletal: normal, strength/ROM intact Neuro: normal, sensory motor intact, A&Ox3 Triage Information Reviewed: Yes Vital Signs On Initial Exam: Initial Vitals Temp Pulse Resp BP Pulse Ox 99.5 F 71 16 117/88 98 12/15/18 15:02 12/15/18 15:02 12/15/18 15:02 12/15/18 15:02 12/15/18 15:02 Vital Signs Reviewed: Yes Diagnostics - Vital Signs Vital Signs Temp Pulse Resp BP Pulse Ox 12/15/18 15:02 99.5 F 71 16 117/88 98 - Laboratory Result Diagrams: 12/15/18 15:35 12/15/18 15:35 Lab Statement: Any lab studies that have been ordered have been reviewed, and results considered in the medical decision making process. - CT Abdomen/Pelvis CT Interpretation Completed By: Radiologist Summary of CT Findings: Normal CT examination. ED Provider has reviewed this report. GIGU Course/Dx - Course Course Of Treatment: This patient is a 23 year old male presenting to [facility] with a chief complaint of left-sided intermittent flank pain since 4 days ago. Bloodwork/UA reviewed. CT Abd/Pelvis was unremarkable. A plan for discharge was discussed with the patient and he was agreeable with this plan. - Diagnoses Provider Diagnoses: Flank pain Discharge - Sign-Out/Discharge Documenting (check all that apply): Patient Departure - Discharge Patient Received Moderate/Deep Sedation with Procedure: No - Discharge Plan Condition: Stable Disposition: HOME Patient Education Materials: Flank Pain (ED) Referrals: Alan Horne MD [Primary Care Provider] - 3 Days Additional Instructions: Follow up with your primary care physician in 3 days. - Attestation Statements Document Initiated by Scribe: Yes Documenting Scribe: Hayden Chand Provider For Whom Scribe is Documenting (Include Credential): Ab Price MD Scribe Attestation: Hayden Srinivasan, scribed for Ab Price MD on 12/15/18 at 1740. Status of Scribe Document: Ready
[2018-12-15 15:43] LABS: ABS Lymphocytes 1.7 10^3/ul (1.0-4.8); ABS Monocytes 0.8 10^3/ul (0-0.8); ABS Neutrophils 4.7 10^3/ul (1.5-7.7); Eosinophil % 0.1 %; Hematocrit 42 % (42-52); Hemoglobin 14.3 g/dL (14.0-18.0); Lymphocyte % 23.7 %; Mean Corpuscular HGB Conc 34 g/dL (31-36); Mean Corpuscular Hemoglobin 25 pg (27-31); Mean Corpuscular Volume 73 fL (80-94); Mean Platelet Volume 8.5 fL (7.4-10.4); Nucleated Red Blood Cells % 0.1; Platelet Count 239 10^3/uL (150-450); Red Blood Count 5.74 10^6 /uL (4.18-5.48); Red Cell Distribution Width 15 % (10-15); White Blood Count 7.3 10^3/uL (3.5-10.8)
[2018-12-15 15:58] LABS: Albumin 4.6 g/dL (3.2-5.2); Albumin/Globulin Ratio 1.3 (1-3); BUN/Creatinine Ratio 11.2 (8-20); Calcium 9.6 mg/dL (8.6-10.3); EGFR African American 114.7 (>60); EGFR Non-African American 94.8 (>60); Globulin 3.5 g/dL (2-4); Potassium 4.4 mmol/L (3.5-5.0); Total Bilirubin 0.8 mg/dL (0.2-1.0); Total Protein 8.1 g/dL (6.4-8.9)
[2018-12-15 17:30] LABS: Urine Appearance Cloudy; Urine Bacteria Absent (Absent); Urine Bilirubin Negative (Negative); Urine Blood Negative (Negative); Urine Color Yellow; Urine Glucose Negative (Negative); Urine Ketones Trace (Negative); Urine Nitrite Negative (Negative); Urine Protein 1+(30 mg/dL) (Negative); Urine Red Blood Cell Absent (Absent); Urine Specific Gravity 1.023 (1.010-1.030); Urine Squamous Epithelial Cell Present (Absent); Urine Urobilinogen Negative (Negative); Urine White Blood Cell Trace(0-5/hpf) (Absent)
[2018-12-15 18:00] VITALS: BP 130/81
== END 2018-12-15 17:58 | disposition home or self-care (01) ==
LOC: ED 15:00
DX: R10.9 Unspecified abdominal pain (principal); R30.0 Dysuria; Z87.442 Personal history of urinary calculi; Z91.018 Allergy to other foods
CPT/HCPCS: 36415; 74176; 80053; 81003; 81015; 83690; 85025; 87086; 99282

== ENCOUNTER 2019-07-01 10:56 | Emergency (ER) | payer BC ==
[2019-07-01] MEDS ORDERED: Ibuprofen TAB* 600 MG PO ONE (11:07)
[2019-07-01 11:57] LABS: Influenza A Molecular Negative (Negative); Influenza B Molecular Negative (Negative)
--- NOTE | 2019-07-01 12:09 | UC ---
FLU HPI - HPI Summary HPI Summary: 24-year-old male presents with sudden onset of general malaise, headache, body aches, sore throat, nausea, and a nonproductive cough last night. No measured fever of the reports chills. Denies ear pain, nasal congestion, runny nose, dysphagia, chest pain, shortness of breath, abdominal pain, vomiting, or diarrhea. - History of Current Complaint Chief Complaint: UCGeneralIllness Stated Complaint: SORE THROAT Time Seen by Provider: 07/01/19 11:24 Hx Obtained From: Patient Pain Intensity: 3 - Allergy/Home Medications Allergies/Adverse Reactions: Allergies Allergy/AdvReac Type Severity Reaction Status Date / Time kiwi Allergy Swelling Verified 07/01/19 11:00 PMH/Surg Hx/FS Hx/Imm Hx Previously Healthy: Yes - Denies significant Other History Of: Negative For: HIV, Hepatitis B, Hepatitis C, Anticoagulant Therapy - Surgical History Surgical History: None - Family History Known Family History: Positive: Non-Contributory - Social History Occupation: Employed Full-time Lives: With Family Alcohol Use: Occasionally Substance Use Type: None Smoking Status (MU): Never Smoked Tobacco Review of Systems All Other Systems Reviewed And Are Negative: Yes Constitutional: Positive: Fever, Chills, Fatigue Eyes: Negative: Drainage, Eye Redness ENT: Positive: Sore Throat. Negative: Ear Ache, Nasal Discharge, Sinus Congestion, Sinus Pain/Tenderness Respiratory: Positive: Cough. Negative: Shortness Of Breath Cardiovascular: Negative: Palpitations, Chest Pain Gastrointestinal: Positive: Nausea. Negative: Abdominal Pain, Vomiting, Diarrhea Genitourinary: Positive: Negative Musculoskeletal: Positive: Negative Neurological/Mental Status: Positive: Headache Is Patient Immunocompromised?: No Physical Exam - Summary Physical Exam Summary: GENERAL APPEARANCE: Well developed, well nourished, alert and cooperative, and appears to be in no acute distress. EYES: Conjunctiva clear. No drainage. EARS: External auditory canals and tympanic membranes clear, hearing grossly intact. NOSE: No nasal congestion. No nasal discharge. THROAT: Pharyngeal erythema. 2+ tonsils with exudate. Uvula midline. NECK: Neck supple, non-tender without lymphadenopathy. CARDIAC: Normal S1 and S2. No S3, S4 or murmurs. Rhythm is regular. There is no peripheral edema, cyanosis or pallor. Extremities are warm and well perfused. Capillary refill is less than 2 seconds. Peripheral pulses intact. LUNGS: Clear to auscultation without rales, rhonchi, wheezing or diminished breath sounds. Dry nonproductive cough. ABDOMEN: Positive bowel sounds. Soft, nondistended, nontender. No guarding or rebound. No masses or hepatosplenomegally. MUSKULOSKELETAL: ROM intact to all extremities. No joint erythema or tenderness. Normal muscular development. Normal gait. SKIN: Skin normal color, texture and turgor with no lesions or eruptions. Triage Information Reviewed: Yes Vital Signs: Initial Vital Signs Temp 101.1 F 07/01/19 11: Pulse 84 07/01/19 11: Resp 18 07/01/19 11:01 BP 130/70 07/01/19 11: Pulse Ox 100 07/01/19 11:01 Vital Signs Reviewed: Yes Flu Course/Dx - Course Course Of Treatment: 24-year-old male presents with sudden onset of general malaise, headache, body aches, sore throat, nausea, and a nonproductive cough last night. No measured fever of the reports chills. Denies ear pain, nasal congestion, runny nose, dysphagia, chest pain, shortness of breath, abdominal pain, vomiting, or diarrhea. Patient had an elevated temperature of 101.1 F. Vital signs otherwise stable. He was medicated with ibuprofen 600 mg for the fever. Patient had no nasal congestion, normal TMs, pharyngeal erythema, 2+ tonsils with exudate, no cervical lymphadenopathy, clear bilateral breath sounds, dry nonproductive cough, and otherwise unremarkable exam. Rapid flu test and rapid strep test were both negative. Reviewed results with the patient. Recommending symptomatic treatment for a viral upper respiratory infection including Tessalon Perles 1 capsule every 8 hours as needed for cough. He is to follow-up with his primary care provider in 5-7 days if symptoms are not improving. Anticipatory guidance and warning symptoms reviewed with the patient. Verbalizes understanding and agrees with plan of care. - Differential Dx/Diagnosis Differential Diagnosis/HQI/PQRI: Bronchitis, Influenza, Pneumonia, Upper Respiratory Infection Provider Diagnosis: Viral upper respiratory infection Discharge ED - Sign-Out/Discharge Documenting (check all that apply): Patient Departure All imaging exams completed and their final reports reviewed: No Studies - Discharge Plan Condition: Stable Disposition: HOME Prescriptions: Benzonatate CAP* [Tessalon 100 MG CAP*] 100 mg PO TID PRN #21 cap PRN Reason: Cough Patient Education Materials: Upper Respiratory Infection (ED) Referrals: Alan Horne MD [Primary Care Provider] - 5 Days Additional Instructions: The rapid flu test and rapid strep test performed in the clinic today were negative. Your history and exam are consistent with a viral upper respiratory infection. Viral infections do not respond to antibiotics and are limited to the treatment of symptoms. Viral infections typically run their course in 7-10 days. Drink plenty of fluids to avoid dehydration especially if you are running any fever. Use an over the counter decongestant such as Sudafed for any nasal congestion. Take Tessalon Perles 1 capsule every 8 hours as needed for cough. Take over the counter acetaminophen (Tylenol) or ibuprofen (Advil, Motrin) according to directions as needed for pain or fever. Use salt water gargles several times a day if you have a sore throat. You may also use Chloraseptic spray or Cepacol lonzenges according to directions which contain a numbing medication and can provide some temporary relief from your sore throat. Follow up with your primary care provider in 5-7 days if symptoms persist. Seek immediate medical attention in the emergency room if you have fever greater than 100.5 F despite taking acetaminophen or ibuprofen, have chest pain , difficulty breathing, are unable to swallow, or have any worsening of symptoms. - Billing Disposition and Condition Condition: STABLE Disposition: Home
[2019-07-01 12:38] VITALS: BP 132/79
== END 2019-07-01 12:30 | disposition home or self-care (01) ==
LOC: UCEAST 10:56
DX: J06.9 Acute upper respiratory infection, unspecified (principal); Z91.018 Allergy to other foods
CPT/HCPCS: 87651; 99212; A9270-GY; G0463

== ENCOUNTER 2019-08-01 09:51 | Day surgery (SDC) | payer BC ==
[~2019-08-01 09:51] MED LIST: Buffered Lidocaine 1% SYRIN* 1 ML/SYRINGE INTRADERM ONE; Lactated Ringers 1000 ML Bag* 1,000 ML IV SCH
[2019-08-01] MEDS ORDERED: Buffered Lidocaine 1% SYRIN* 1 ML/SYRINGE INTRADERM ONE (10:08)
[2019-08-01] MEDS ORDERED: fentaNYL* 50 MCG/ML 2 ML VIAL (100 MCG VIAL) ONE (11:52)
[2019-08-01] MEDS ORDERED: Midazolam* 1 MG/ML 2 ML VIAL (2 MG) ONE (11:52)
[2019-08-01] MEDS ORDERED: Propofol* 10 MG/ML 20 ML BTL ONE (12:30)
[2019-08-01] MEDS ORDERED: Succinylcholine* 20 MG/ML 10 ML VIAL ONE (12:30)
[2019-08-01] MEDS ORDERED: Dexamethasone IV* 4 MG/ML 1 ML (4 MG) ONE (12:30)
[2019-08-01] MEDS ORDERED: Ondansetron INJ* 2 MG/ML VIAL ONE (12:30)
[2019-08-01] MEDS ORDERED: HYDROmorphone INJ1* 1 MG/ML SYRINGE IV PRN (13:02)
[2019-08-01] MEDS ORDERED: Naloxone* 0.4 MG/ML 1 ML VIAL IV PRN (13:02)
[2019-08-01 13:55] VITALS: BP 148/99
--- NOTE | 2019-08-01 22:39 | OP ---
DATE OF OPERATION: 08/01/19 - SDS DATE OF : [birth year] SURGEON: Samuel Chaudhry MD PRE-OP DIAGNOSES: 1. Hypertrophied tonsils. 2. Chronic tonsillitis. POST-OP DIAGNOSES: 1. Hypertrophied tonsils 2. Chronic tonsillitis. OPERATIVE PROCEDURE: Tonsillectomy. INDICATIONS: This 24-year-old with markedly enlarged tonsils with cryptic tonsils, recurring infections, elected for surgical therapy. DESCRIPTION OF PROCEDURE: The patient was taken to the operating room. General anesthetic was given. The patient was intubated. Tongue, mandible, and soft palate were retracted. Coblator was used to remove the tonsils and a tonsillar plane, both sides. Once hemostasis was obtained, the patient awakened , extubated, and sent to the recovery room in stable condition. Instrument and sponge count correct. Blood loss minimal. [id number]/CPS #: [id number] MTDD
== END 2019-08-01 14:18 | disposition home or self-care (01) ==
LOC: OR 09:51
PROVIDERS: ATTEND Otolaryngology
DX: J35.01 Chronic tonsillitis (principal); R59.0 Localized enlarged lymph nodes; Z91.018 Allergy to other foods
CPT/HCPCS: 88304; J0330; J1100; J2250; J2405; J2704; J3010